=== PATIENT | female | born 1950 | race Caucasian/White ===

== ENCOUNTER 2019-04-05 10:00 | Emergency (ER) | payer MEDICARE ==
--- NOTE | 2019-04-05 10:57 | ED Physician Chart ---
ED Chief Complaint/HPI - Patient Information Date Seen:: 04/05/19 Time Seen:: 10:40 Chief Complaint:: pain right-sided back History of Present Illness:: Patient has had a "nagging " pain from the right side of the back "from the scapula to the kidney area" for the last 7 months. 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 One fifth of the left kidney was resected. The margins of the tumor were clear so patient required neither radiation nor chemotherapy. Patient requests a CAT scan to rule out tumor of the right kidney. Allergies:: Allergies Allergy/AdvReac Type Severity Reaction Status Date / Time No Known Allergies Allergy Verified 04/05/19 10:15 Vitals:: Vital Signs - 8 hr 04/05/19 10:16 Temp 97.2 F HR 83 RR 18 BP 108/64 O2 Sat % 98 ED Review of Systems - Review of Systems General/Constitutional: No fever, No chills, No weight loss, No weakness, No diaphoresis, No edema, No loss of appetite Skin: No skin lesions, No rash, No bruising Head: No headache, No light-headedness Eyes: No loss of vision, No pain, No diplopia ENT: No earache, No nasal drainage, No sore throat, No tinnitus Neck: No neck pain, No swelling, No thyromegaly, No stiffness, No mass noted Cardio Vascular: No chest pain, No palpitations, No PND, No orthopnea, No edema Pulmonary: No SOB, No cough, No sputum, No wheezing GI: No nausea, No vomiting, No diarrhea, No pain, No melena, No hematochezia, No constipation, No hematemesis G/U: No dysuria, No frequency, No hematuria Musculoskeletal: Back pain Endocrine: No polyuria, No polydipsia Psychiatric: No prior psych history, No depression, No anxiety, No suicidal ideation Hematopoietic: No bruising, No lymphadenopathy Allergic/Immuno: No urticaria, No angioedema Neurological: No syncope, No focal symptoms, No weakness, No paresthesia, No headache, No seizure, No dizziness, No confusion, No vertigo ED Past Medical History - Past Medical History Past Medical History: Other (diverticulitis; hyperlipidemia) Family History: Heart disease, Diabetes Melitus Social History: Other (occasionally smokes cigarettes; he usually drinks alcohol ) Surgical History: other (bladder suspension 2; partial hysterectomy; malignant tumor oeft kidney) Psychiatricy History: None Family Medical History - Family Member Mother History Unknown: Yes ED Physical Exam - Physical Examination General/Constitutional: Awake, Well-developed, well-nourished, Alert, No distress Head: Atraumatic Eyes: Lids, conjuctiva normal, PERRL Skin: Nl inspection, No rash, No skin lesions, No ecchymosis, Well hydrated, No lymphadenopathy ENMT: External ears, nose nl, TM canals nl, Nasal exam nl, Lips, teeth, gums nl , Oropharynx nl, Tonsils nl Neck: No nuchal rigidity Respiratory: Nl effort/Exclusion, Clear to Auscultation, No Wheeze/Rhonchi/Rales Cardio Vascular: RRR, No murmur, gallop, rubs, NL S1 S2 GI: No organomegaly, No hernia, Normal BS's, Nondistended, No mass/bruits Other GI comments:: RUQ tenderness Extremities: Normal digits & nails Neuro/Psych: Normal gait Misc: Normal back ED Labs/Radiology/EKG Results - Lab Results Results: Laboratory Results Urine Source RANDOM 04/05/19 10:30 Urine Color YELLOW 04/05/19 10:30 Urine Clarity SLIGHT CLOUDY (CLEAR) H 04/05/19 10:30 Urine pH 6.0 (4.6 - 8.0) 04/05/19 10:30 Ur Specific Roby 1.015 (1.005-1.030) 04/05/19 10:30 Urine Protein NEGATIVE mg/dL (NEGATIVE) 04/05/19 10:30 Urine Glucose (UA) NEGATIVE mg/dL (NEGATIVE) 04/05/19 10:30 Urine Ketones NEGATIVE mg/dL (NEGATIVE) 04/05/19 10:30 Urine Blood NEGATIVE (NEGATIVE) 04/05/19 10:30 Urine Nitrate POSITIVE (NEGATIVE) H 04/05/19 10:30 Urine Bilirubin NEGATIVE (NEGATIVE) 04/05/19 10:30 Urine Urobilinogen 0.2 E.U./dL (0.2 - 1.0) 04/05/19 10:30 Ur Leukocyte Esterase SMALL (NEGATIVE) H 04/05/19 10:30 Urine RBC 0-2 /hpf (0-5) 04/05/19 10:30 Urine WBC 6-10 /hpf (0-5) H 04/05/19 10:30 Ur Epithelial Cells FEW /lpf (FEW) 04/05/19 10:30 Urine Bacteria 4+ /hpf (NONE SEEN) H 04/05/19 10:30 - Radiology Results Results: Both the abdominal ultrasound and a CAT scan of abdomen and pelvis showed no acute disease ED Assessment - Assessment General Assessment: Patient lives in [facility] and is returning home in a couple days. I suggested patient have a repeat urinalysis in a week to 10 days to make sure she does not have a urinary tract infection. Patient's current urinalysis shows 6-10 WBCs. I considered the patient to have a urinary tract infection only if there are at least 10 WBC in the urine. The etiology of the patient's right-sided back pain is uncertain. Copies of the urinalysis and the disks of the ultrasound and CT abdomen and pelvis will be sent with the patient. ED Septic Shock - . Is Septic Shock (SBP<90, OR Lactate>4 mmol\\L) present?: No - <6hrs of presentation: Vital Signs: Vital Signs - 8 hr 04/05/19 10:16 Temp 97.2 F HR 83 RR 18 BP 108/64 O2 Sat % 98 ED Reassessment (Disposition) - Reassessment Reassessment Condition:: Unchanged - Diagnosis Diagnosis:: Musculoskeletal back pain - Aftercare/Follow up Instructions Aftercare/Follow-Up Instructions:: Counseled pt regarding lab results/diagnosis & need follow up, Refer to Discharge Instructions - Patient Disposition Discharge/Transfer:: Home Condition at Disposition:: Stable, Unchanged
[2019-04-05 11:06] LABS: URINE SOURCE RANDOM
[2019-04-05 11:10] LABS: URINE BILIRUBIN NEGATIVE (NEGATIVE); URINE BLOOD NEGATIVE (NEGATIVE); URINE GLUCOSE (UA) NEGATIVE (NEGATIVE); URINE KETONE NEGATIVE (NEGATIVE); URINE LEUKOCYTE ESTERASE SMALL (NEGATIVE); URINE MICROSCOPIC INDICATED? YES; URINE NITRATE POSITIVE (NEGATIVE); URINE PROTEIN NEGATIVE (NEGATIVE); URINE UROBILINOGEN 0.2 E.U./dL (0.2 - 1.0)
[2019-04-05 11:11] LABS: URINE CLARITY SLIGHT CLOUDY (CLEAR); URINE COLOR YELLOW
[2019-04-05 11:21] LABS: URINE BACTERIA 4+ /hpf (NONE SEEN); URINE EPITHELIAL CELLS FEW /lpf (FEW); URINE RBC 0-2 /hpf (0-5)
--- NOTE | 2019-04-05 11:57 | Diagnostic Imaging Report ---
CT scan of the abdomen and pelvis without intravenous contrast History: Pain Total DLP equals 500 and CTDI equals 11.5 Axial sections were obtained from the xiphoid process down to the pubic symphysis. The liver demonstrates a normal size and contour. No focal lesions are seen. The spleen appears normal. No abnormalities are seen in the region of the pancreas. The kidneys appear normal bilaterally. The exam of the pelvis demonstrates preservation of normal fat planes. No abnormal soft tissue masses. No abnormal fluid collections. There is a mildly distended stool-filled ascending colon. Several colonic diverticula are seen. No abnormalities are seen in the region of the appendix. Impression: 1. Mildly distended stool-filled ascending colon 2. Diverticulosis 3. No other acute abnormalities
--- NOTE | 2019-04-05 11:58 | Diagnostic Imaging Report ---
Abdominal ultrasound HISTORY: Pain The liver exhibits a normal size. There is a somewhat heterogeneous pancreatic parenchyma. The significance should be correlated with liver function tests. No focal lesions. The gallbladder appears normal. No calculi are seen. No biliary dilatation. The pancreas could not be well seen due to bowel gas. No focal renal lesions. No hydronephrosis. The spleen is normal in size. No other retroperitoneal or intra-abdominal abnormalities. IMPRESSION: 1. Mildly heterogeneous hepatic parenchyma. The significance should be correlated with liver function tests. 2. No other significant abnormalities
== END 2019-04-05 12:25 | disposition home or self-care (01) ==
LOC: ER 10:00
DX: M54.5 Low back pain (principal); R10.11 Right upper quadrant pain; F17.210 Nicotine dependence, cigarettes, uncomplicated
CPT/HCPCS: 76700-TC; 81001-TC; 87086-90